=== PATIENT | male | born 1995 | race Caucasian/White ===

== ENCOUNTER 2024-03-12 05:02 | Emergency (ER) | payer MEDICAID, SELFPAY ==
[2024-03-12 05:03] VITALS: BP 139/86; PULSE 94; RESP 18; TEMP 37.3; O2SAT 100; BMI 30.5
[2024-03-12 05:31] VITALS: PULSE 93; RESP 18; O2SAT 100
[2024-03-12 06:00] VITALS: BP 115/74; PULSE 83; RESP 17; TEMP 37; O2SAT 96
--- NOTE | 2024-03-12 06:18 | XR_ITS ---
Examination examination: PA lateral chest 2 views Technique: Upright PA lateral chest 2 views Exam date and time: March 12, 2024 0632 hrs. Indications: Onset chest pain today Findings: Minimal prominence left ventricle No pneumonia or pulmonary edema Pectus deformity Impression: No pneumonia or pulmonary edema
[2024-03-12] MEDS: LIDOCAINE VISCOUS 2% 15 ML UDC PO (06:45)
[2024-03-12] MEDS: MG HYD/AL HYD/SIME (Maalox Reg) SUSP 30 ML UDC PO (06:45)
[2024-03-12 06:49] LABS: Troponin I < 0.002 ng/mL (0.0-0.045)
--- NOTE | 2024-03-12 06:51 | EDNOTE_ITS ---
ED Chest Pain RME/HPI General Chief Complaint: Chest Pain Stated Complaint: CHEST PAIN Time Seen by Provider: 03/12/24 06:19 Arrival date/time: 03/12/24 05:02 RME / HPI RME / HPI narrative: 28-year-old male with a history of asthma no family history of premature OK, who presents to the emergency department with sudden onset of substernal left-sided chest pressure radiating to his left side of his neck and his left arm. He describes the pain as an ache, without associated shortness of breath, nausea, or diaphoresis. He was seated just finishing a late-night movie at 3 AM when this started. He does admit to having several tall ones earlier yesterday evening and his meal was a turkey club sandwich, he denies particularly greasy or spicy foods. He denies epigastric pain or abdominal pain. He denies recent fevers chills or sweats. No cough. No sick contacts Related Data Home Medications ?Medication ?Instructions ?Recorded ?Confirmed No Known Home Medications 03/12/24 03/12/24 Allergies Allergy/AdvReac Type Severity Reaction Status Date / Time No Known Allergies Allergy Verified 03/12/24 06:27 Review of Systems Review of Systems Systems Reviewed: All systems reviewed, normal except as documented ED Exam Narrative Physical exam: GENERAL APPEARANCE: AxOx4, generally well-appearing, no acute distress. HEENT: NC, AT. MMM. EOMI, clear conjunctiva, oropharynx clear. NECK: Supple without lymphadenopathy. No stiffness or restricted ROM. HEART: Normal rate and regular rhythm, normal S1/S1, no m/r/g LUNGS: CTAB, moving air well. No crackles or wheezes are heard. ABDOMEN: Soft, nontender, nondistended with good bowel sounds heard. BACK: No midline C/T/L spine pain or deformity, No CVAT, no obvious deformity. EXTREMITIES: Without cyanosis, clubbing or edema. MUSCULOSKELETAL: FROM of all major joints, no chest tenderness on palpation NEUROLOGICAL: Grossly nonfocal. Alert and oriented, moving all 4 extremities. CN not formally tested but appear grossly intact. Observed to ambulate with normal gait. Skin: Warm and dry without any rash. Course Quality Measures none Orders Category Date Time Status Continuous Pulse Oximetry NOW Care 03/12/24 05:33 Completed EKG (ED ONLY) *Do not use* NOW Care 03/12/24 05:27 Completed CXR2 [XR chest 2V] Stat Exams 03/12/24 06:18 Completed EKG (ED Only) Stat Exams 03/12/24 05:27 Ordered Troponin I Stat Lab 03/12/24 05:40 Completed Troponin I Stat Lab 03/12/24 08:39 Completed Lidocaine 2% Viscous [Xylocaine 2% Viscous] Med 03/12/24 06:21 Discontinued 15 ml PO X1 ONE mg Hyd/Al Hyd/Concha Susp [Maalox Susp] Med 03/12/24 06:21 Discontinued 30 ml PO X1 ONE Vital Signs Vital signs: Vital Signs Temperature 99.1 F 03/12/24 05:03 Pulse Rate 94 03/12/24 05:03 Respiratory Rate 18 03/12/24 05:03 Blood Pressure 139/86 H 03/12/24 05:03 Pulse Oximetry (%) 100 03/12/24 05:03 Oxygen Delivery Method Room Air 03/12/24 05:03 Oxygen Flow Rate 6 03/12/24 05:03 SpO2 100% on 6 L oxygen, not hypoxic Procedures -ED EKG Interpretation #1: Date of EK03/12/24 Time of EK:18 Rate: 90 Interpretation: Interpreted by me EKG Impression: Normal sinus rhythm, No acute ST-T changes, Normal intervals and Normal axis Chest Pain MDM Narrative MDM Narrative:: Mr. Templeton presents to the emergency department with substernal left-sided chest pain of moderate suspicion for cardiac ischemia. He exhibits no other risk factors including no family history. EKG and troponin x 2 shows 9 no signs of acute ischemia. Heart score of 1, he is appropriate for outpatient follow-up and workup. Due to his history of asthma and chest pain, chest x-ray two-view was done and all my interpretation there is no acute cardiopulmonary findings, no cardiomegaly, no bony abnormalities. As he admits to several large cans of beers last night, and the pain coming somewhere towards the middle of the night, he was given a GI cocktail to assess for the possibility of gastritis and alcohol exacerbated gastritis. Pain completely resolved with a GI cocktail. As he is asymptomatic, stable vital signs, negative troponin x 2, he is appropriate for outpatient follow-up. Patient data External records reviewed:: [facility] previous records Clinical information provided by:: patient Social determinants that could affect healthcare access:: none Patient has the following chronic illnesses:: None How is presenting disease/condition affected by chronic disease/condition?: no chronic disease Evaluation data The following diagnostics were reviewed and interpreted by me:: lab results, radiology exam(s) and EKG tracing(s) Lab and/or radiology exams considered but not ordered:: None Interpretation Summary: As per narrative Medications / Prescriptions Medications or Prescriptions considered but not ordered:: None Medication administrations:: Medication Administration History Discontinued Medications Al Hydrox/Mg Hydrox/Simethicone (Mg Hyd/Al Hyd/Concha (Maalox Reg) Susp 30 Ml Udc) 30 ml PO X1 ONE Stop: 03/12/24 06:22 Last Admin: 03/12/24 06:45 Dose: 30 ml Documented By: CCT Lidocaine HCl (Lidocaine Viscous 2% 15 Ml Udc) 15 ml PO X1 ONE Stop: 03/12/24 06:22 Last Admin: 03/12/24 06:45 Dose: 15 ml Documented By: CCT Above Consultations Consultation(s) initiated? (list below): No Diagnosis Chest Pain Differential Diagnosis: stable angina, unstable angina pectoris, atypical chest pain, st elevation myocardial infarction, costochondritis and other (Gastritis, esophageal reflux) Most likely diagnosis given after review of the tests above:: See below Admission Indicated Admission indicated?: not indicated Admission Request Was there a request for admission?: No Disposition Plan Disposition Plan: Discharge Discharge Attestation Discharge Attestation: The patient and all family members were given an opportunity to ask questions and understood the discharge instructions. Discharge instructions specifically effects, indications for sooner follow up or return to the emergency department, and the expected course of current diagnosis. Patient condition: Stable Discharge Plan Plan Patient Disposition: HOME (Self Care) Prescriptions/Referrals Prescriptions/Med Rec: No Action No Known Home Medications Referrals: Fermin Gan MD [Primary Care Provider] - In 1 week Problem List Clinical Impression: Chest pain Patient/Caregiver Discharge Instructions Education Materials: ED Chest Pain, Uncertain Cause Additional Instructions: Avoid excessive alcohol and spicy greasy foods for the next 48 hours. Try to eat healthy such as vegetables and fiber while drinking plenty of fluids. Follow-up with your primary care doctor in 2 to 3 days if symptoms are not improved or continue to recur. You can return to the emergency department sooner if symptoms worsen or if you notice any new, concerning issues. Print Language: [place] Stand Alone Forms: Margaret Award Info., Patient Portal Info Letter
--- NOTE | 2024-03-12 07:15 | PC.NURSE ---
Received report from Darwin FAROOQ and assumed care of patient. Patient sleeping in bed with no signs of distress and vital signs stable.
[2024-03-12 09:04] VITALS: BP 117/74; PULSE 72; RESP 14; TEMP 36.6; O2SAT 95
[2024-03-12 09:16] LABS: Troponin I < 0.002 ng/mL (0.0-0.045)
[2024-03-12 11:35] VITALS: BP 108/64; PULSE 69; RESP 17; TEMP 36.6; O2SAT 97
== END 2024-03-12 12:01 | disposition home or self-care (01) ==
PROVIDERS: Emergency Provider Emergency Medicine; PCP Family Medicine
DX: R07.89 Other chest pain (principal); I45.89 Other specified conduction disorders
CPT/HCPCS: 36415; 71046; 80053; 80307; 83735; 83880; 84484; 85025; 93005; 99283; J3490; A9270